=== PATIENT | male | born 1970 | race Caucasian/White ===

== ENCOUNTER 2017-02-13 08:47 | Emergency (ER) | payer OTHER ==
[~2017-02-13] VITALS: Ht 175.3 cm; Wt 121.1 kg
[2017-02-13 09:38] LABS: BASOPHIL % 1.2 % (0-2); PLATELET COUNT 167 x10^3mcL (130-400)
[2017-02-13 09:44] LABS: CARBON DIOXIDE 30.2 mmol/L (21-32); CHLORIDE SERUM 102 mmol/L (98-107); GFR1 > 60 mL/min; GLUCOSE SERUM 170 mg/dL (74-106); POTASSIUM SERUM 4.2 mmol/L (3.5-5.1); SODIUM SERUM 139 mmol/L (136-145)
[2017-02-13 09:50] LABS: ALBUMIN 3.5 g/dL (3.4-5.0); ALKALINE PHOSPHATASE 93 U/L (46-116); ALT/SGPT 40 U/L (16-63); AST/SGOT 14 U/L (15-37); BILIRUBIN TOTAL 0.3 mg/dL (0.20-1.00); TOTAL PROTEIN, SERUM 7.1 g/dL (6.4-8.2)
[2017-02-13] MEDS ORDERED: METFORMIN HCL1000 MG PO (11:54)
[2017-02-13] MEDS ORDERED: NITROGLYCERIN0.4 MG SL (11:55)
[2017-02-13] MEDS ORDERED: BAYER ASPIRIN R81 MG PO (11:56)
[2017-02-13] MEDS ORDERED: ACT30 PO (11:56)
[2017-02-13] MEDS ORDERED: AMARYL4 MG PO (11:56)
[2017-02-13] MEDS ORDERED: HCTZ/LISINOPRIL1 TA2 PO (11:57)
[2017-02-13] MEDS ORDERED: ATORVASTATIN CA40 M1 PO (11:58)
[2017-02-13 15:12] VITALS: BP 125/65
== END 2017-02-13 15:12 | disposition home or self-care (01) ==
LOC: ED 08:47
DX: R07.9 Chest pain, unspecified (principal); Z88.0 Allergy status to penicillin; E11.9 Type 2 diabetes mellitus without complications; I10 Essential (primary) hypertension
CPT/HCPCS: 36415; 83880; Q0092